=== PATIENT | male | born 1985 | race Caucasian/White ===

== ENCOUNTER 2023-12-03 15:59 | Emergency (ER) | payer OTHER ==
[2023-12-03 16:22] VITALS: BP 105/68; PULSE 78; RESP 18; TEMP 98.3; BMI 21.9
[2023-12-03] MEDS ORDERED: ACETAMINOPHEN INJECTION 100 ML IVPB ONE (17:18)
[2023-12-03] MEDS ORDERED: FAMOTIDINE 20 MG/50 ML IVPB 20 MG/50 ML MG IVPB ONE (17:18)
[2023-12-03] MEDS: FAMOTIDINE 20 MG/50 ML IVPB 20 MG/50 ML MG IVPB ONE (17:37)
[2023-12-03] MEDS: ACETAMINOPHEN 1000 MG/100 ML BAG IVPB ONE (17:37)
[2023-12-03 17:41] LABS: BASO % 0.8 % (0-2.0); EOS % 0.8 % (0-4.5); HEMATOCRIT 48.2 % (35.4-49); HEMOGLOBIN 15.9 GM/dL (11.7-16.9); LYMPH % 29.5 % (8-40); MCH 30.4 pg (25.7-33.7); MCHC 32.9 g/dl (32.0-35.9); MEAN CELL VOLUME 92.3 fl (80-96); MEAN PLT VOLUME 6.5 fl (7.5-11.1); MONO % 5.7 % (3.8-10.2); NEUT % 63.2 % (42.8-82.8); PLATELET COUNT 346 10^3/uL (134-434); RBC 5.22 M/mm3 (4.00-5.60); RDW 12.9 % (11.9-15.9); WHITE BLOOD COUNT 5.7 K/mm3 (4.0-10.0)
[2023-12-03] MEDS: LACTATED RINGERS SOLUTION 1000 ML INFUS.BAG IV ONE (17:53)
[2023-12-03 18:01] LABS: CALCIUM 9.3 mg/dL (8.5-10.1)
[2023-12-03 18:02] LABS: BLOOD UREA NITROGEN 17.7 mg/dL (7-18)
[2023-12-03 18:05] LABS: CREATININE 1.1 mg/dL (0.55-1.3)
[2023-12-03 18:06] LABS: BILIRUBIN,TOTAL 0.4 mg/dL (0.2-1); TOT PROT 7.9 g/dl (6.4-8.2)
[2023-12-03 18:26] LABS: PH,URINE 6.5 (5.0-8.0); URINE APPEARANCE CLEAR; URINE BILIRUBIN NEGATIVE (NEGATIVE); URINE COLOR YELLOW; URINE GLUCOSE (UA) NEGATIVE (NEGATIVE); URINE KETONE NEGATIVE (NEGATIVE); URINE LEUK ESTERASE NEGATIVE (NEGATIVE); URINE NITRITE NEGATIVE (NEGATIVE); URINE PROTEIN NEGATIVE (NEGATIVE); URINE UROBILINOGEN 0.2 mg/dL (0.2-1.0)
== END 2023-12-03 21:14 | disposition home or self-care (01) ==
LOC: JER 15:59
PROC: 3E033GC Introduction of Other Therapeutic Substance into Peripheral Vein, Percutaneous Approach (ICD-10-PCS; principal; 2023-12-03)
PROC: 3E033NZ Introduction of Analgesics, Hypnotics, Sedatives into Peripheral Vein, Percutaneous Approach (ICD-10-PCS; 2023-12-03)
DX: R10.31 Right lower quadrant pain (principal); R10.11 Right upper quadrant pain
CPT/HCPCS: 36415; 74177-TC; 80053; 81003; 83690; 85025; 87086; 99285-25; J0131; Q9967

== ENCOUNTER 2023-12-13 07:14 | Emergency (ER) | payer OTHER ==
[2023-12-13 07:21] VITALS: RESP 20; BMI 26.5
[2023-12-13] MEDS ORDERED: IBUPROFEN 400 MG TABLET (FP) PO ONE (07:37)
[2023-12-13] MEDS ORDERED: ONDANSETRON *ODT* 4 MG TABLET ONE (07:37)
[2023-12-13] MEDS: ONDANSETRON *ODT* 4 MG TABLET SL ONE (07:45)
[2023-12-13] MEDS: IBUPROFEN 400 MG TABLET (FP) PO ONE (08:06)
[2023-12-13] MEDS ORDERED: ACETAMINOPHEN 500 MG TABLET (FP) ONE (08:48)
[2023-12-13] MEDS: ACETAMINOPHEN 500 MG TABLET (FP) PO ONE (08:51)
[2023-12-13 09:03] VITALS: BP 124/70; PULSE 95; TEMP 99.3
== END 2023-12-13 09:17 | disposition home or self-care (01) ==
LOC: JER 07:14
DX: R50.9 Fever, unspecified (principal); M79.10 Myalgia, unspecified site; R05.9 Cough, unspecified; R51.9 Headache, unspecified; R11.0 Nausea; R00.0 Tachycardia, unspecified; J02.9 Acute pharyngitis, unspecified; J10.1 Influenza due to other identified influenza virus with other respiratory manifestations; Z20.822 Contact with and (suspected) exposure to COVID-19
CPT/HCPCS: 0241U-QW; 87651; 99283-25; Q0162